=== PATIENT | male | born 1990 | race Hispanic/Latino ===

== ENCOUNTER 2023-12-25 19:11 | Emergency (ER) | payer SELFPAY ==
[2023-12-25] MEDS ORDERED: fentaNYL 50 mcg/mL 1 mL Vial ONE (22:15)
[2023-12-25] MEDS ORDERED: Bacitracin 1 PK ONE (22:46)
== END 2023-12-25 23:27 | disposition home or self-care (01) ==
LOC: ERS 19:11
DX: S00.03XA Contusion of scalp, initial encounter (principal); V43.52XA Car driver injured in collision with other type car in traffic accident, initial encounter
CPT/HCPCS: 70450; 71260; 72125; 74177; 96374; J3010